=== PATIENT | female | born 1970 | race Caucasian/White ===

== ENCOUNTER → 2021-04-14 12:43 | Outpatient (CLI) | payer MEDICARE, SELFPAY ==
[2021-04-14] MEDS: COVID-19 VACC, MRNA(PFIZER)/PF 30 MCG/0.3 ML SYRINGE IM (18:11)
== END ==
PROVIDERS: Visit Provider Family Medicine
DX: Z23 Encounter for immunization (principal)
CPT/HCPCS: 0002A; 91300

== ENCOUNTER 2021-07-24 10:46 | Emergency (ER) | payer SELFPAY ==
[2021-07-24 10:47] VITALS: BP 136/93; PULSE 81; RESP 18; TEMP 36.6; O2SAT 98; BMI 34.7
--- NOTE | 2021-07-24 11:12 | EDS_ITS ---
HPI History of Present Illness Chief Complaint: Numb/Ting Informant: patient Onset/Context/Timing Onset: - (years) Context: Gradual Onset Timing: Continuous and Waxes and wanes Quality: painful tingling Location: down LLE to bottom of foot, now LUE for 1-2 weeks Current Severity: Moderate Maximum Severity: Moderate Worsened by: touching Relieved by: nothing Associated Symptoms Associated Symptoms: no weakness, speech problems, face sx Narrative Narrative: 50-year-old female presenting with left lower extremity painful numbness/tingling for years. She states in the last week or 2, it has also involved her left upper extremity, mostly the dorsal lateral left upper arm and forearm, does not involve her fingers. She denies any weakness. She denies any neck pain acutely but states it is always sore and tight. She denies any injuries. She denies any acute low back pain. No bowel or bladder dysfunction or hematuria. [facility] Medical History Family history of kidney stones History of diverticulitis Home Medications gabapentin 300 mg PO TID #87 cap 07/24/21 [Rx Last Taken Unknown] Allergy/AdvReac Type Severity Reaction Status Date / Time levofloxacin [From Levaquin] Allergy Pain in Verified 07/24/21 10:50 joints sulfamethoxazole Allergy Nausea Verified 07/24/21 10:50 [From Bactrim] trimethoprim [From Bactrim] Allergy Nausea Verified 07/24/21 10:50 Surgical History History of tubal ligation History of wisdom tooth extraction Social History Smoking Status: Never smoker ROS ROS ED Constitutional Constitutional ED: Denies chills or fever(s) Eyes Eyes: Denies change in vision or diplopia ENT ENT ED: Denies rhinorrhea or sore throat Cardiovascular Cardiovascular: Denies chest pain or palpitations Respiratory/Chest Respiratory/Chest: Denies cough or dyspnea Gastrointestinal Gastrointestinal: Denies abdominal pain, diarrhea, nausea or vomiting Genitourinary Genitourinary ED: Denies dysuria or hematuria Musculoskeletal Musculoskeletal: Reports as per HPI and neck pain; Denies back pain Integumentary Denies abscess or rash Neurologic Neurologic: Reports as per HPI, paresthesias and radicular pain; Denies headache(s) or weakness Psychiatric Psychiatric: Denies anxiety or suicidal thoughts EXAM Physical Exam Const Vital Signs: 07/24/21 10:47 Temperature 97.9 F Temperature Source Temporal Pulse Rate 81 Respiratory Rate 18 Blood Pressure 136/93 H Blood Pressure Mean 107 Pulse Ox 98 Oxygen Delivery Method Room Air Positive well nourished and well developed General Appearance ED: well developed and NAD HEENT Reports moist mucous membranes normocephalic and atraumatic Eyes PERRL and EOMs intact bilaterally Neck full ROM and supple Back/Spine no CVA tenderness General Back: other FROM Extremity normal to inspection General Extremety ED: Negative for edema, pulses abnormal or tenderness General Extremity: Negative for edema or pulses abnormal Neuro oriented x3 and CN's II-XII intact bilaterally Neuro Narrative: Sensation grossly intact. Mildly tender paresthesias left C5-6 distribution but not involving any fingers, and also approximately left L4-5 distribution. Negative cross leg straight leg raises, positive left lower extremity ipsilateral straight leg raise. Sensorium / Orientation: awake and alert Motor Exam: strength 5/5 throughout Skin no rashes or lesions noted and no wounds MDM MDM MDM Narrative Medical decision making narrative: Most consistent with radiculopathy. Patient may need an MRI as an outpatient but not indicated emergently, nor is other imaging at this time. Since she has had the symptoms for a long time, I will place her on gabapentin and refer her to a PCP since she does not have 1. Discharge Plan Triage Chief Complaint: Numb/Ting ED Provider: Dawson Vazquez Dx/Rx/DC Orders Clinical Impression: Radiculopathy affecting upper extremity Instructions: ED Radiculopathy, Cervical, ED Sciatica Prescriptions: New gabapentin 300 mg capsule 300 mg PO TID Qty: 87 RF: 0 Primary Care Provider: NOT,DEFINED Referrals: Jesus Kerr MD [STAFF PHYSICIAN] - NOT,DEFINED [Primary Care Provider] - Disposition Disposition: Home, Self Care
[2021-07-24 11:33] VITALS: RESP 18
== END 2021-07-24 11:40 | disposition home or self-care (01) ==
PROVIDERS: Emergency Provider Emergency Medicine
DX: M54.10 Radiculopathy, site unspecified (principal)
CPT/HCPCS: 99282